=== PATIENT | male | born 1955 | race Caucasian/White ===

== ENCOUNTER 2021-01-13 08:49 | Emergency (ER) | payer BC, SELFPAY ==
[2021-01-13 09:09] VITALS: BP 138/83; PULSE 74; RESP 16; TEMP 36.2; O2SAT 97; BMI 36.2
[2021-01-13] MEDS: Lidocaine HCl 1 % MPF 5 ML VIAL SUBCUT (10:47)
--- NOTE | 2021-01-13 11:13 | ED.SKABFB ---
HPI - Skin/Abscess/Foreign Bdy General Chief complaint: Skin/Abscess/Foreign Body Stated complaint: lump on face Time Seen by Provider: 01/13/21 09:33 Source: patient Mode of arrival: ambulatory History of Present Illness HPI narrative: 65-year-old male with a past medical history of diabetes, GERD, hypertension, prostate disorder, presenting to the ED complaining of left facial swelling/abscess x 10 days. Reports chronic cyst, however pain, erythema and growth worsening over the past few days. Denies fever, chills, drainage from area. Reports started taking antibiotics at home that he had left over. MD complaint: abscess/boil Related Data Home Medications Medication Instructions Recorded Confirmed chlorthalidone 25 mg tablet 25 mg PO DAILY 06/02/20 lisinopril 40 mg tablet 40 mg PO DAILY 06/02/20 omeprazole 20 mg capsule,delayed 20 mg PO DAILY 06/02/20 release tamsulosin 0.4 mg capsule 0.4 mg PO DAILY 06/02/20 Previous Rx's Medication Instructions Recorded acetaminophen [Tylenol Extra 500 mg PO Q6H PRN #20 tab 01/13/21 Strength] cephalexin 500 mg PO QID 7 Days #28 cap 01/13/21 doxycycline hyclate 100 mg PO BID 7 Days #14 tab 01/13/21 ibuprofen 600 mg PO Q6H 7 Days #42 tab 01/13/21 Allergies Allergy/AdvReac Type Severity Reaction Status Date / Time No Known Allergies Allergy Unverified 05/21/20 17:45 [No Known Allergies*] tamsulosin AdvReac Unknown agitation Verified 12/13/16 00:00 seasonal allergies Allergy Unknown Uncoded 04/23/20 00:00 Review of Systems Review of Systems: Constitutional: No Fever, No Chills ENT/Mouth: No Ear Pain, No sore throat, No Swallowing Difficulty Cardiovascular: No Chest Pain, No SOB Musculoskeletal: No joint pain, No Myalgias, No Joint Swelling Skin: + abscess Neuro: No Weakness, No Numbness, No Paresthesias Yes all other systems are reviewed and are negative [facility] Past Medical History Attestation statement: The following information was validated with the patient. Medical History (Updated 01/13/21 @ 11:12 by VALENTINE Gaines) Diabetes GERD (gastroesophageal reflux disease) HTN (hypertension) Prostate disorder Family History Family History (Updated 06/02/20 @ 13:09 by CAMILA Meng) Father No problems noted. Mother Alzheimer disease Social History Social History Smoked in Last 30 Days: No Use of substances other than those prescribed or required for medical reasons: No Advance Directives: No Advance Directives Information Provided: No Physical Exam Vital Signs: Vital Signs: Last Vital Signs Temp 97.1 F 01/13/21 09:09 Pulse 74 01/13/21 09:09 Resp 16 01/13/21 09:09 BP 138/83 01/13/21 09:09 Pulse Ox 97 01/13/21 09:09 Body Mass Index 36.2 Const: General: cooperative, healthy appearing, no acute distress and well developed Orientation/consciousness: patient oriented x3 Limitations: no limitations HENMT: Other: Left cheek with fluctuant and indurated abscess with pointing and surrounding cellulitis. No evidence of intraoral infection Head: Yes normal to inspection Ears: hearing grossly normal bilaterally General nose exam: Normal external nose present Face and sinus: Yes normal facial exam Throat: Yes posterior oropharynx normal Eyes: General: appearance normal, both eyes and all related structures EOM: EOMs intact bilaterally Neck: Neck: Yes full ROM, Yes no lymphadenopathy, Yes no meningeal signs and Yes supple Chest: Chest palpation & inspection: normal inspection of the chest Resp: Effort & Inspection: normal respiratory effort Cardio: Rhythm: regular rhythm Skin: Rashes: no rashes Neuro: General: patient oriented x3, tone normal, moves all extremities and no meningeal signs Gait exam (Neuro): Normal gait present Extrem: General: Yes normal to inspection Procedures Abscess I/D Site: face Side (if applicable): left Local Anesthetic: lidocaine 1% Amount of anesthesia used (mL): 5 Technique: incised with blade Sent for culture/gram staining?: No Irrigation: No Packing used?: none Complications: pain MDM - Skin/Abscess/Foreign Bdy MDM Narrative Medical decision making narrative: 65-year-old male with a past medical history of diabetes, GERD, hypertension, prostate disorder, presenting to the ED complaining of left facial swelling/abscess x 10 days. On exam VSS, NAD, abscess I&D with moderate amount of mucopurulent pus expressed. Discharge Plan Discharge Clinical Impression: Abscess of skin or subcutaneous tissue Qualifiers: Site of cutaneous abscess: face Qualified Code(s): L02.01 - Cutaneous abscess of face Patient Disposition: Home, Self-Care Instructions: Abscess (ED), Abscess Follow-up (ED) Additional Instructions: Your abscesses drained today in the ED. Doxycycline and Keflex antibiotics, take as prescribed.you should be re-evaluated in 2 days. Take Tylenol and Motrin at home for pain. If symptoms persist or worsen, area of gross/he develops fever or chills or increased drainage please return to the ED. Keep your plastic surgery follow-up this month Apply warm compresses Katalina abscesos se drenaron hoy en el servicio de urgencias. Doxiciclina y antibi?ticos Keflex, t?melos seg?n lo prescrito. Debe ser reevaluado en 2 d?as. [place] Tylenol y Motrin en casa para el dolor. Si los s?ntomas persisten o empeoran, el ?kareem de asqueroso / ?l desarrolla fiebre o escalofr?os o un aumento del drenaje, regrese al servicio de urgencias. Mantenga jarquin seguimiento de cirug?a pl?stica hank mes Aplicar compresas tibias Prescriptions: New cephalexin 500 mg capsule 500 mg PO QID 7 Days Qty: 28 RF: 0 doxycycline hyclate 100 mg tablet 100 mg PO BID 7 Days Qty: 14 RF: 0 acetaminophen [Tylenol Extra Strength] 500 mg tablet 500 mg PO Q6H PRN (Reason: pain or fever) Qty: 20 RF: 0 ibuprofen 400 mg tablet 600 mg PO Q6H 7 Days Qty: 42 RF: 0 Referrals: Belinda Denton MD [Primary Care Provider] - 2 days Interventions: ED Discharge Assessment Last Done: 01/13/21 11:35 Discharge Date/Time: 01/13/21 11:36
== END 2021-01-13 11:36 | disposition home or self-care (01) ==
PROVIDERS: Emergency Provider Emergency Medicine Emergency Medical Services; PCP Internal Medicine
DX: L02.01 Cutaneous abscess of face (principal); Z79.899 Other long term (current) drug therapy
CPT/HCPCS: 10060; 99283

== ENCOUNTER 2021-01-15 09:01 | Emergency (ER) | payer BC, SELFPAY ==
[2021-01-15 09:17] VITALS: BP 137/81; PULSE 68; RESP 16; TEMP 35.9; O2SAT 97; BMI 36.2
--- NOTE | 2021-01-15 09:30 | ED.GENADULT ---
HPI - General Adult General Chief complaint: Wound/Laceration Stated complaint: WOUND CHECK Time Seen by Provider: 01/15/21 09:30 Source: patient Limitations: no limitations History of Present Illness HPI narrative: Patient returns for wound check of a I and D to the left cheek. Patient states symptoms have improved and swelling has dramatically 1 time. Patient is currently on antibiotics and take as prescribed. Patient has planned follow-up with Plastic surgery. No other complaints or issues at this time. Patient denies fever chills or vomiting. Patient is without pain Related Data Home Medications Medication Instructions Recorded Confirmed chlorthalidone 25 mg tablet 25 mg PO DAILY 06/02/20 lisinopril 40 mg tablet 40 mg PO DAILY 06/02/20 omeprazole 20 mg capsule,delayed 20 mg PO DAILY 06/02/20 release tamsulosin 0.4 mg capsule 0.4 mg PO DAILY 06/02/20 Previous Rx's Medication Instructions Recorded acetaminophen [Tylenol Extra 500 mg PO Q6H PRN #20 tab 01/13/21 Strength] cephalexin 500 mg PO QID 7 Days #28 cap 01/13/21 doxycycline hyclate 100 mg PO BID 7 Days #14 tab 01/13/21 ibuprofen 600 mg PO Q6H 7 Days #42 tab 01/13/21 Allergies Allergy/AdvReac Type Severity Reaction Status Date / Time No Known Allergies Allergy Unverified 05/21/20 17:45 [No Known Allergies*] tamsulosin AdvReac Unknown agitation Verified 12/13/16 00:00 seasonal allergies Allergy Unknown Uncoded 04/23/20 00:00 Review of Systems Constitutional: Constitutional: Denies chills, Denies fever(s), Denies headache(s) and Denies weakness ENT: Denies headache(s) and Denies sore throat Cardiovascular: Cardiovascular: Denies chest pain and Denies dyspnea Respiratory: Respiratory: Denies dyspnea Gastrointestinal: Gastrointestinal: Denies nausea and Denies vomiting Neurologic: Denies headache(s) and Denies weakness Hematologic/Lymphatic: Comments: No bleeding healing facial wound on left side from I&D PMFSH Past Medical History Attestation statement: The following information was validated with the patient. Medical History Diabetes GERD (gastroesophageal reflux disease) HTN (hypertension) Prostate disorder Family History Family History Father No problems noted. Mother Alzheimer disease Social History Social History Smoked in Last 30 Days: No Use of substances other than those prescribed or required for medical reasons: No Advance Directives: Yes Advance Directives Information Provided: Yes Advance Directives on File: No Physical Exam Vital Signs: Vital Signs: Last Vital Signs Temp 96.7 F L 01/15/21 09:17 Pulse 68 01/15/21 09:17 Resp 16 01/15/21 09:17 BP 137/81 01/15/21 09:17 Pulse Ox 97 01/15/21 09:17 Body Mass Index 36.2 vital signs have been reviewed as normal and appeared to be correct. Blood pressure normal. Heart rate normal. Respiration rate normal. Temperature normal. Oxygen saturation normal. Appearance: Alert. Oriented X3. No acute distress. Head: Normal external exam. Normocephalic. Atraumatic. Eyes: PERRLA. EOMI. ENT: Pharynx normal. Uvula midline. Moist mucous membranes. CVS: Heart regular rate and rhythm no murmurs and rubs Respiratory: Breath sounds are clear to auscultation bilaterally. No accessory muscle use noted. Skin: Skin is warm and dry. Left cheek healing I and D abscess wound no packing in place and no induration erythema noted or purulent discharge minimal to no tenderness on palpation Extremities: No lower extremity edema. Extremities exhibit normal range of motion. Extremities nontender. Neuro: Oriented X 3. No motor deficit. No sensory deficit. Course Course Course Narrative: Differential diagnosis: Wound check Left cheek abscess I&D Patient had an I and D on Monday his symptoms have improved patient instructed to continue current antibiotics follow-up with plastic surgeries as directed. Discharge Plan Discharge Clinical Impression: Abscess Patient Disposition: Home, Self-Care Instructions: Abscess Follow-up (ED) Additional Instructions: Follow-up as directed continue current antibiotics. Prescriptions: No Action cephalexin 500 mg capsule 500 mg PO QID 7 Days Qty: 28 RF: 0 doxycycline hyclate 100 mg tablet 100 mg PO BID 7 Days Qty: 14 RF: 0 acetaminophen [Tylenol Extra Strength] 500 mg tablet 500 mg PO Q6H PRN (Reason: pain or fever) Qty: 20 RF: 0 ibuprofen 400 mg tablet 600 mg PO Q6H 7 Days Qty: 42 RF: 0 Print Language: Swedish
== END 2021-01-15 10:04 | disposition home or self-care (01) ==
PROVIDERS: Emergency Provider Emergency Medicine; PCP Internal Medicine
DX: Z48.00 Encounter for change or removal of nonsurgical wound dressing (principal); Z79.899 Other long term (current) drug therapy
CPT/HCPCS: 99284

== ENCOUNTER 2023-08-03 10:21 | Outpatient (REF) | payer MEDICARE, SELFPAY | END 2023-08-03 10:22 | disposition home or self-care (01) | LOC: HO.SH 10:21 | PROVIDERS: Visit Provider Internal Medicine | DX: Z01.118 Encounter for examination of ears and hearing with other abnormal findings (principal); H90.A32 Mixed conductive and sensorineural hearing loss, unilateral, left ear with restricted hearing on the contralateral side | CPT/HCPCS: 92557; 92567 ==